=== PATIENT | female | born 1970 | race American Indian/Alaskan Native ===

== ENCOUNTER 2020-09-20 20:11 | Emergency (ER) | payer MEDICARE, MEDICAID ==
[~2020-09-20] VITALS: Ht 149.9 cm; Wt 51.3 kg
[2020-09-20 20:18] VITALS: BP 101/47
[2020-09-21] MEDS ORDERED: methylPREDNISolone SOD SUCC 125 MG/2 ML VL IM ONE (01:00)
[2020-09-21] MEDS ORDERED: KETOROLAC TROMETH 60MG/2ML VIAL IM ONE (01:00)
[2020-09-21] MEDS ORDERED: BUTORPHANOL TARTRATE 2 MG/1 ML VIAL IM ONE (02:15)
== END 2020-09-21 03:03 | disposition home or self-care (01) ==
LOC: ER 20:14
DX: G50.0 Trigeminal neuralgia (principal); R51.9 Headache, unspecified; M54.2 Cervicalgia
CPT/HCPCS: 70450; 72125; 96372; 99285; J0595; J1885; J2930